=== PATIENT | female | born 1970 | race African-American/Black ===

== ENCOUNTER 2018-10-10 13:57 | Emergency (ER) | payer OTHER ==
[~2018-10-10] VITALS: Ht 162.6 cm; Wt 136.1 kg
[~2018-10-10 13:57] MED LIST: ADIPEX-P37.5 M1 PO; BACTRIM DS TAB1 EACH PO; BENTYL20 MG PO; CARISOPRODOL 3350 MG PO; CARVEDILOL12.5 MG PO; CLEOCIN HCL150 MG PO; DICLOFENAC SOD50 M1 PO; FLONASE 0.05%50 MCG NASAL; GLUCOPHAGE XR500 MG PO; HYDROCODON-ACE1 EAC5 PO; IBUPROFEN 800800 MG PO; IMITREX 50 MG T50 MG PO; LIPITOR20 MG PO; LISINOPRIL10 MG PO; LYRICA 75 MG CA75 MG PO; NEURONTIN600 MG PO; NORCO 10-325 T1 EACH PO; NORCO 5-325 TA1 EACH PO; OXYBUTYNIN 5 MG5 M1 PO; OXYBUTYNIN 5 MG5 M2 PO; PHENAZOPYRIDIN200 M2 PO; PRILOSEC20 MG PO; QUDEXY XR50 MG PO; SYNTHROID175 MCG PO; UNICOMPLEX M TA1 TA1 PO; VITAMIN D 5050000 I1 PO; ZOLOFT 50 MG TA50 MG PO
[2018-10-10] MEDS ORDERED: PREDNISONE 20 M20 M1 PO (15:58)
[2018-10-10] MEDS ORDERED: PROMETH-CODEIN 65 ML PO (15:59)
[2018-10-10] MEDS ORDERED: BACTRIM DS TAB1 EACH PO (16:16)
[2018-10-10] MEDS ORDERED: VENTOLIN HFA 1818 GM INH (16:16)
[2018-10-10 17:20] VITALS: BP 148/89
== END 2018-10-10 16:23 | disposition home or self-care (01) ==
LOC: ER 13:57
DX: J40 Bronchitis, not specified as acute or chronic (principal); I10 Essential (primary) hypertension; M79.7 Fibromyalgia; Z88.1 Allergy status to other antibiotic agents; Z88.6 Allergy status to analgesic agent; Z88.8 Allergy status to other drugs, medicaments and biological substances

== ENCOUNTER 2018-12-11 17:29 | Emergency (ER) | payer OTHER ==
[~2018-12-11] VITALS: Ht 162.6 cm; Wt 136.1 kg
[~2018-12-11 17:29] MED LIST changes: +PREDNISONE 20 M20 M1 PO; +PROMETH-CODEIN 65 ML PO; +VENTOLIN HFA 1818 GM INH
[2018-12-11] MEDS ORDERED: PROTONIX40 M1 PO (17:40)
[2018-12-11] MEDS ORDERED: TESSALON PERLE100 MG PO (18:16)
[2018-12-11] MEDS ORDERED: LIDODERM1 EACH TOP (18:18)
[2018-12-11] MEDS ORDERED: PREDNISONE 20 M20 MG PO (18:21)
[2018-12-11 19:00] VITALS: BP 128/82
== END 2018-12-11 19:00 | disposition home or self-care (01) ==
LOC: ER 17:29
DX: J06.9 Acute upper respiratory infection, unspecified (principal); I10 Essential (primary) hypertension; M79.7 Fibromyalgia; Z88.6 Allergy status to analgesic agent; Z88.1 Allergy status to other antibiotic agents; Z91.018 Allergy to other foods; Z88.8 Allergy status to other drugs, medicaments and biological substances; Z86.2 Personal history of diseases of the blood and blood-forming organs and certain disorders involving the immune mechanism

== ENCOUNTER 2020-11-05 13:53 | Emergency (ER) | payer OTHER ==
[~2020-11-05] VITALS: Ht 162.6 cm; Wt 158.8 kg
[~2020-11-05 13:53] MED LIST changes: +LIDODERM1 EACH TOP; +PREDNISONE 20 M20 MG PO; +PROTONIX40 M1 PO; +TESSALON PERLE100 MG PO
[2020-11-05] MEDS ORDERED: MEDROLDOSEPACK PO (16:31)
[2020-11-05 16:33] VITALS: BP 178/98
[2020-11-05] MEDS ORDERED: METHOCARBAMOL500 M2 PO (16:37)
== END 2020-11-05 16:33 | disposition home or self-care (01) ==
LOC: ER 13:53
DX: M54.16 Radiculopathy, lumbar region (principal); I10 Essential (primary) hypertension; M79.7 Fibromyalgia; G89.29 Other chronic pain; E66.9 Obesity, unspecified; Z86.2 Personal history of diseases of the blood and blood-forming organs and certain disorders involving the immune mechanism; Z88.1 Allergy status to other antibiotic agents; Z88.6 Allergy status to analgesic agent; Z91.048 Other nonmedicinal substance allergy status; Z91.09 Other allergy status, other than to drugs and biological substances